=== PATIENT | male | born 1940 | race Caucasian/White ===

== ENCOUNTER → 2016-11-10 | Outpatient (CLI) | payer MEDICARE, OTHER ==
[2016-11-10 10:48] LABS: ABSOLUTE LYMPHOCYTES (AUTO) 2.2 10^3/uL (0.5-4.7); ABSOLUTE MONOCYTES (AUTO) 1.2 10^3/uL (0.1-1.4); ABSOLUTE NEUT (AUTO) 7.4 10^3/uL (1.7-8.2); BASOPHILS % (AUTO) 0.3 % (0-2); EOSINOPHILS % (AUTO) 0.4 % (0-6); HEMATOCRIT 43.2 % (37.9-51.0); HEMOGLOBIN 14.6 g/dL (13.5-17.0); HGB HCT DIFFERENCE 0.6; MEAN CORPUSCULAR HEMOGLOBIN 32.3 pg (27.0-33.4); MEAN CORPUSCULAR HGB CONC 33.8 g/dL (32.0-36.0); MEAN CORPUSCULAR VOLUME 96 fl (80-97); MONOCYTES % (AUTO) 10.8 % (3-13); RED BLOOD COUNT 4.52 10^6/uL (4.35-5.55); RED CELL DISTRIBUTION WIDTH 14.3 % (11.5-14.0); SEGMENTED NEUTROPHILS % (AUTO) 68.5 % (42-78); WHITE BLOOD COUNT 10.8 10^3/uL (4.0-10.5)
[2016-11-10 11:15] LABS: ALANINE AMINOTRANSFERASE 38 U/L (21-72); ALBUMIN 4.1 g/dL (3.5-5.0); ALKALINE PHOSPHATASE 58 U/L (38-126); AMYLASE 36 U/L (30-110); ANION GAP 9 (5-19); ASPARTATE AMINO TRANSFERASE 27 U/L (17-59); BILIRUBIN,DIRECT 0.3 mg/dL (0.0-0.4); BILIRUBIN,TOTAL 0.6 mg/dL (0.2-1.3); BLOOD UREA NITROGEN 14 mg/dL (7-20); CALCIUM 9.6 mg/dL (8.4-10.2); CARBON DIOXIDE 29 mmol/L (22-30); CHLORIDE 104 mmol/L (98-107); CREATININE RESULT 0.76 mg/dL (0.52-1.25); GLUCOSE 85 mg/dL (75-110); LDH 459 U/L (313-618); LIPASE 60.9 U/L (23-300); POTASSIUM 4.8 mmol/L (3.6-5.0); SODIUM 142.2 mmol/L (137-145); TOTAL PROTEIN 7.2 g/dL (6.3-8.2)
[2016-11-10 11:16] LABS: C-REACTIVE PROTEIN < 5.0 mg/L (<10.0)
[2016-11-10 11:31] LABS: ERYTHROCYTE SEDIMENTATION RATE 11 mm/hr (0-20)
--- NOTE | 2016-11-10 13:51 | RADIOLOGY REPORT (SQ) ---
EXAM DESCRIPTION: CT ABD/PELVIS WITH IV ORAL COMPLETED DATE/TIME: 11/10/2016 1:19 pm REASON FOR STUDY: UNSPEC ABD PAIN (R10.9) R10.9 UNSPECIFIED ABDOMINAL PAIN COMPARISON: 2007. TECHNIQUE: CT scan of the abdomen and pelvis performed with intravenous and oral contrast using robert sheila scanning technique with dynamic intravenous contrast injection. Images reviewed with lung, soft t issue, and bone windows. Reconstructed coronal and sagittal MPR images reviewed. Delayed images for e valuation of the urinary system also acquired. All images stored on PACS. All CT scanners at this facility use dose modulation, iterative reconstruction, and/or weight based d osing when appropriate to reduce radiation dose to as low as reasonably achievable (ALARA). [facility]: Dose Right [facility]: CareDose [facility]: Dose Right [facility]: Teradose 4D [facility]: [employer]Bio CONTRAST TYPE AND DOSE: 100 mL Isovue 370- low osmolar. RENAL FUNCTION: Creatinine 0.76 RADIATION DOSE: 42.86mGy. LIMITATIONS: None. FINDINGS: LOWER CHEST: No significant findings. No nodules or infiltrates. LIVER: Normal size. No masses or dilated ducts. SPLEEN: Normal size. No focal lesions. PANCREAS: Normal. GALLBLADDER: Surgically absent. ADRENAL GLANDS: No significant masses or asymmetry. RIGHT KIDNEY AND URETER: No solid masses. No significant calcification. No hydronephrosis or hydroure ter. LEFT KIDNEY AND URETER: No solid masses. No significant calcification. No hydronephrosis or hydrouret er. AORTA AND VESSELS: Focal ectasia in the infrarenal aorta just above bifurcation. Borderline aneurysm , just under 3 cm. Associated plaque. Probable chronic mild unchanged dissection. Major arterial b ranches are patent. Major veins are free of clot. RETROPERITONEUM: No retroperitoneal adenopathy, hemorrhage or masses. BOWEL AND PERITONEAL CAVITY: Diverticulosis in the distal colon. No bowel obstruction. No inflammat ory changes. No ascites or abnormal gas. APPENDIX: Normal. PELVIS: No significant masses. Normal bladder. No free fluid. ABDOMINAL WALL: No bowel containing hernia. Minimal fat containing left inguinal hernia. BONES: Osteopenia. Spondylosis. Chronic postoperative changes including posterior instrumentation a t the lumbosacral junction. Epidural stimulator device with leads projecting into the lower thoracic region. OTHER: No other significant finding. IMPRESSION: 1. No acute abdominopelvic abnormality appreciated. 2. Chronic atherosclerosis and dis emelina aortic changes as above. 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 TECHNICAL DOCUMENTATION: JOB ID: [id number] Quality ID # [id number]: Final reports with documentation of one or more dose reduction techniques (e.g., Au tomated exposure control, adjustment of the mA and/or kV according to patient size, use of iterative reconstruction technique) 2010 [employer]- All Rights Reserved
== END ==
LOC: RAD 10:05
PROVIDERS: ATTEND Family Medicine
DX: R10.9 Unspecified abdominal pain (principal); K57.30 Diverticulosis of large intestine without perforation or abscess without bleeding
CPT/HCPCS: 36415; 74177; 80053; 82150; 83615; 83690; 85025; 85652; 86140

== ENCOUNTER 2018-09-14 20:35 | Emergency (ER) | payer MEDICARE, OTHER ==
[2018-09-14] MEDS ORDERED: NORMAL SALINE 500 ML IV ONE (22:05)
[2018-09-14] MEDS ORDERED: ONDANSETRON HCL INJ/PF 4 MG/2 ML SDV IV ONE (22:05)
--- NOTE | 2018-09-14 22:09 | ER Document Report ---
ED General - General Chief Complaint: Fever Stated Complaint: FEVER,VOMITING,ACHES Time Seen by Provider: 09/14/18 21:56 Primary Care Provider: LUCIUS KIRBY MD [Primary Care Provider] - Follow up as needed Notes: Patient is a 78-year-old male who presents with complaint of vomiting and fever. Patient says is not had a new cough or congestion. No associated abdominal pain other than a little bit of indigestion sensation when he has to vomit. Fever at home yesterday was 102. Today is 101. Tonight he went to urgent care and he said they did blood work and told him he had to come to the ER. He did not get his blood work results. He does have history of enlarged prostate. He denies any pain in his prostate area but has noticed yesterday through today he has had some urinary frequency increase. No blood in his emesis. No diarrhea. No blood in the stool. No other complaints at this time. Patient has a history of atrial fibrillation is on Xarelto. TRAVEL OUTSIDE OF THE [place] IN LAST 30 DAYS: No - Related Data Allergies/Adverse Reactions: No Known Allergies Allergy (Verified 11/22/12 06:38) Past Medical History - Social History Smoking Status: Never Smoker Frequency of alcohol use: None Drug Abuse: None Family History: Reviewed & Not Pertinent Patient has suicidal ideation: No Patient has homicidal ideation: No - Past Medical History Cardiac Medical History: Reports: Hx Heart Attack - 2001, Hx Hypertension - on meds Denies: Hx Coronary Artery Disease Pulmonary Medical History: Reports: Hx Bronchitis Denies: Hx Asthma, Hx COPD, Hx Pneumonia Neurological Medical History: Denies: Hx Cerebrovascular Accident, Hx Seizures Renal/ Medical History: Denies: Hx Peritoneal Dialysis GI Medical History: Musculoskeletal Medical History: Reports Hx Arthritis Infectious Medical History: Past Surgical History: Denies: Hx Pacemaker - Immunizations Hx Diphtheria, Pertussis, Tetanus Vaccination: Yes Hx Pneumococcal Vaccination: 03/13/10 Review of Systems - Review of Systems Notes: My Normal Review Basic REVIEW OF SYSTEMS: CONSTITUTIONAL : Denies fever, chills, or sweats. Denies recent illness. EENT: Denies eye, ear, throat, or mouth pain or symptoms. Denies nasal or sinus congestion. RESPIRATORY: Denies cough, cold, or chest congestion. Denies shortness of breath, difficulty breathing, or wheezing. GASTROINTESTINAL: Mild "indigestion" type feeling in epigastric region when he becomes nauseous. Otherwise no other abdominal pain. Recurrent vomiting. GENITOURINARY: Denies difficulty urinating, painful urination, burning, frequency, or blood in urine. MUSCULOSKELETAL: Denies neck or back pain or joint pain or swelling. SKIN: Denies rash or skin lesions. NEUROLOGICAL: Denies altered mental status or loss of consciousness. Denies headache. Denies weakness or paralysis or loss of use of either side. Denies problems with gait or speech. Denies sensory or motor loss. ALL OTHER SYSTEMS REVIEWED AND NEGATIVE. Physical Exam - Vital signs Vitals: Temp Pulse Resp BP Pulse Ox 99.2 F 97 16 144/59 H 96 09/14/18 21:10 09/14/18 21:10 09/14/18 21:10 09/14/18 21:10 09/14/18 21:10 - Notes Notes: General Appearance: Well nourished, alert, cooperative, no acute distress, no obvious discomfort. Well-appearing. Vitals: reviewed, See vital signs table. Head: no swelling or tenderness to the head Eyes: PERRL, EOMI, Conjuctiva clear Mouth: No decreasd moisture Lungs: No wheezing, No rales, No rhonci, No accessory muscle use, good air exchange bilaterally. Heart: Normal rate, Regular rythm, No murmur, no rub Abdomen: Normal BS, soft, No rigidity, No abdominal tenderness to palpation, No guarding, no rebound, no abdominal masses, no organomegaly Extremities: strength 5/5 in all extremities, good pulses in all extremities, no swelling or tenderness in the extremities, very trace lower extremity edema. Skin: warm, dry, appropriate color, no rash Neuro: speech clear, oriented x 3, normal affect, responds appropriately to questions. Course - Re-evaluation Re-evalutation: 09/14/18 23:42 On reevaluation patient continues look well. Is in no distress. Breathing is normal. Heart rate is normal. He has pyuria. This could either be UTI or possible prosthetic infection. I will give him a dose of Rocephin. If he continues look well after that then I will place him on Bactrim which we will treat both UTI and/or prostate type infection. This makes sense with the fact the patient has noticed some urinary frequency over the last 2 days. 09/15/18 00:22 Patient continues to feel much improved and his vital signs are normal. I feel he safe to be discharged home. He is not septic or toxic appearing. We will place him on Bactrim. I encouraged him follow-up with his doctor on Tuesday. I informed him that if he is having recurrent fevers or feels that he is not improving over the weekend then he should return to the ER for reevaluation and not wait till Tuesday to see his doctor. Patient agrees with plan will be discharged home. Dictation of this chart was performed using voice recognition software; therefore, there may be some unintended grammatical errors. - Vital Signs Vital signs: Temp Pulse Resp BP Pulse Ox 99.2 F 97 16 144/59 H 96 09/14/18 21:10 09/14/18 21:10 09/14/18 21:10 09/14/18 21:10 09/14/18 21:10 - Laboratory Result Diagrams: 09/14/18 21:39 09/14/18 21:39 Laboratory results interpreted by me: 09/14/18 09/14/18 09/14/18 21:39 21:39 21:39 WBC 13.1 H RBC 4.29 L MCH 33.8 H Seg Neutrophils % 86.9 H Lymphocytes % 6.4 L Absolute Neutrophils 11.4 H Sodium 136.8 L Glucose 134 H Urine Protein 30 H Urine Ketones 20 H Urine Blood MODERATE H Urine Urobilinogen 4.0 H Ur Leukocyte Esterase LARGE H Urine Ascorbic Acid 40 H Discharge - Discharge Clinical Impression: Pyuria Vomiting Qualifiers: Vomiting type: unspecified Vomiting Intractability: intractable Nausea presence: with nausea Qualified Code(s): R11.2 - Nausea with vomiting, unspecified Condition: Good Disposition: HOME, SELF-CARE Additional Instructions: Your urine shows evidence of infection. This could be related to either a urinary tract infection or could be related to infection of your prostate. I have placed you on an antibiotic called Bactrim. This will treat both of those conditions. Please take the antibiotic as prescribed. Please stop the antibiotic and return to the ER immediately if you develop a rash as this would be a sign of a serious reaction to the antibiotic. I have also prescribed a medicine called Zofran which will help with the nausea. You can take the Zofran as 1 tablet every 4 hours as needed for nausea. Please take Tylenol if you develop fever over the next 36 hours. After 36 hours you should not be developing further fevers. If you continue develop fevers then you should return to ER for reevaluation. Please follow-up with your doctor on Tuesday. Return to the ER immediately if you develop recurrent vomiting despite Zofran, recurring fevers as mentioned above, or if you feel that you are worsening in any way. Return to ER immediately if you develop any abdominal pain. Prescriptions: Sulfamethoxazole/Trimethoprim [Bactrim Ds Tablet] 1 each PO BID #28 tablet Referrals: LUCIUS KIRBY MD [Primary Care Provider] - 09/18/18
[2018-09-14 22:21] LABS: ABSOLUTE LYMPHOCYTES (AUTO) 0.8 10^3/uL (0.5-4.7); ABSOLUTE MONOCYTES (AUTO) 0.9 10^3/uL (0.1-1.4); ABSOLUTE NEUT (AUTO) 11.4 10^3/uL (1.7-8.2); BASOPHILS % (AUTO) 0.1 % (0-2); EOSINOPHILS % (AUTO) 0.1 % (0-6); HEMATOCRIT 40.7 % (37.9-51.0); HEMOGLOBIN 14.5 g/dL (13.5-17.0); LYMPHOCYTES % (AUTO) 6.4 % (13-45); MEAN CORPUSCULAR HEMOGLOBIN 33.8 pg (27.0-33.4); MEAN CORPUSCULAR HGB CONC 35.5 g/dL (32.0-36.0); MEAN CORPUSCULAR VOLUME 95 fl (80-97); MONOCYTES % (AUTO) 6.5 % (3-13); PLATELET COUNT 178 10^3/uL (150-450); RED BLOOD COUNT 4.29 10^6/uL (4.35-5.55); RED CELL DISTRIBUTION WIDTH 13.5 % (11.5-14.0); SEGMENTED NEUTROPHILS % (AUTO) 86.9 % (42-78); TOTAL CELLS COUNTED % (AUTO) 100 %; WHITE BLOOD COUNT 13.1 10^3/uL (4.0-10.5)
[2018-09-14 22:26] LABS: ALANINE AMINOTRANSFERASE 24 U/L (21-72); ALKALINE PHOSPHATASE 64 U/L (38-126); ANION GAP 11 (5-19); ASPARTATE AMINO TRANSFERASE 22 U/L (17-59); BILIRUBIN,DIRECT 0.4 mg/dL (0.0-0.4); BLOOD UREA NITROGEN 15 mg/dL (7-20); CALCIUM 9.5 mg/dL (8.4-10.2); CARBON DIOXIDE 24 mmol/L (22-30); CHLORIDE 102 mmol/L (98-107); GLUCOSE 134 mg/dL (75-110); LIPASE 30.1 U/L (23-300); POTASSIUM 4.1 mmol/L (3.6-5.0); SODIUM 136.8 mmol/L (137-145); TOTAL PROTEIN 7.1 g/dL (6.3-8.2)
[2018-09-14] MEDS ORDERED: FAMOTIDINE INJ/PF 20 MG/2 ML SDV IV ONE (22:38)
[2018-09-14 22:41] LABS: APPEARANCE,URINE SLIGHTLY-CLOUDY; BILIRUBIN,URINE NEGATIVE (NEGATIVE); COLOR,URINE YELLOW; GLUCOSE, URINE NEGATIVE (NEGATIVE); KETONES,URINE 20 mg/dL (NEGATIVE); LEUKOCYTE ESTERASE,URINE LARGE (NEGATIVE); NITRITE,URINE NEGATIVE (NEGATIVE); PROTEIN,URINE 30 mg/dL (NEGATIVE); URINE SPECIFIC GRAVITY 1.027
[2018-09-14] MEDS ORDERED: CEFTRIAXONE 1 GM/D5W RTU 1 GM/50 ML RTUPB IV ONE (23:59)
[2018-09-15] MEDS ORDERED: ONDANSETRON ODT 4 MG TAB (6 TAB/ER DISP) PO PRN (00:20)
[2018-09-15 00:49] VITALS: BP 134/63
--- NOTE | 2018-09-15 07:46 | EKG REPORT ---
SEVERITY:- ABNORMAL ECG - SINUS RHYTHM VENTRICULAR PREMATURE COMPLEX NONSPECIFIC IVCD WITH LAD (LAFB) : Confirmed by: Shola Leal MD 15-Sep-2018 07:46:37
== END 2018-09-15 00:55 | disposition home or self-care (01) ==
LOC: ER 20:35
DX: N39.0 Urinary tract infection, site not specified (principal); R11.2 Nausea with vomiting, unspecified; R50.9 Fever, unspecified; R11.10 Vomiting, unspecified; M79.10 Myalgia, unspecified site; R05 Cough; R09.81 Nasal congestion; I48.91 Unspecified atrial fibrillation; Z79.01 Long term (current) use of anticoagulants; I10 Essential (primary) hypertension; Z79.899 Other long term (current) drug therapy
CPT/HCPCS: 93005; 99284; 96361; 96375; 96365; 36415; 87086; 83690; 85025; 87088; 80053; 81001; 87186; 93010; J2405; J7040; S0028; J0696; A9270

== ENCOUNTER 2018-11-23 10:32 | Day surgery (SDC) | payer MEDICARE, OTHER ==
[~2018-11-23 10:32] MED LIST: KETOROLAC TROMETHAMINE 0.45% 4 DROP/0.4 ML DROPERETTE OS PRN; MIDAZOLAM 2 MG/2 ML INJ ONE
[2018-11-23] MEDS: BESIFLOXACIN HCL 0.6% OPH SUSP 5 ML BOTTLE OS PRN ×4 (11:23→12:24)
[2018-11-23] MEDS: TROPICAMIDE 1% OPH SOLN 3 ML OS PRN ×3 (11:23→11:43)
[2018-11-23] MEDS: CYCLOPENTOLATE 0.2%/PHENYLEPHRINE 1% OPH SOLN 2 ML OS PRN ×3 (11:23→11:43)
[2018-11-23] MEDS: TETRACAINE HCL 0.5% OPH SOLN 4 ML OS PRN ×4 (11:24→11:55)
[2018-11-23] MEDS: LIDOCAINE 1%/PHENYLEPHRINE 1.5% 1 ML VIAL ONE ×2 (12:12)
[2018-11-23] MEDS: CHONDR SU A NA/HYALUR INTRAOC KIT (SURGICARE) ONE ×2 (12:12)
[2018-11-23] MEDS: EPINEPHRINE INJ/PF 1 MG/1 ML AMPULE ONE ×2 (12:12)
[2018-11-23] MEDS: DORZOLAMIDE HCL 2%/TIMOLOL MALEAT 0.5% OPH SOLN 10 ML OS PRN ×2 (12:24)
--- NOTE | 2018-11-24 09:09 | [facility] OPERATIVE REPORT E ---
[facility] Operative Report NAME: OLEG CALZADA AGE: 78Y DATE OF SURGERY: 11/23/2018 ROOM: PREOPERATIVE DIAGNOSIS: CATARACT, LEFT EYE. POSTOPERATIVE DIAGNOSIS: CATARACT, LEFT EYE. OPERATION: Cataract extraction with Symfony Toric IOL, left eye. SURGEON: LISHA HUIZAR M.D. ANESTHESIA: Topical. PROCEDURE: After obtaining appropriate consent, the patient's left eye was prepped and draped in sterile fashion as well as the surgeon in a sterile manner and cataract surgery was started. First a paracentesis blade was used to make a side-port incision. Viscoelastic was used to inflate the anterior chamber. Next a 2.4 mm incision was made with a 2.4 mm blade, clear corneal temporally. A continuous capsulorrhexis was made using a cystotome and Utrata forceps. Following this hydrodissection was carried out to make the lens fully loose and mobile and it was rotated 90 degrees. Following this, a ovjltn-yam-kpruspx technique was used to phacoemulsify the lens with a CDE of 5.53. The remaining cortex was removed with irrigation/aspiration. Provisc was instilled into the capsular bag to inflate the bag. A 19.0 diopter [id number] lens was placed, rotated to 160 degrees. The remaining viscoelastic material was removed with irrigation/aspiration. Following this, the incision was found to be watertight. Besivance was instilled into the eye and a protective shield was placed over the eye. The patient returned to the postoperative recovery in stable condition. DICTATING PHYSICIAN: LISHA HUIZAR M.D. [id number] PHY#: [id number] ID: [id number] JOB#: [id number] ACCT: [id number] cc:LISHA HUIZAR M.D. >
--- NOTE | 2018-11-24 09:09 | [facility] DISCHARGE SUMMARY E ---
[facility] Discharge Summary NAME: OLEG CALZADA AGE: 78Y ADMITTED: 11/23/2018 DISCHARGED: 11/23/2018 DIAGNOSIS: CATARACT, LEFT EYE. SUMMARY: This is a 78-year-old patient who underwent cataract extraction with insertion of a Symfony Toric IOL of the left eye. They underwent surgery because they were having difficulty with glare from headlights. DISCHARGE INSTRUCTIONS: They should be on a regular diet. They should use their Besivance, Prolensa, and Durezol at 3 p.m. and 8 p.m. and sleep with a rigid shield. I will see them for a 1-day postoperative tomorrow. DICTATING PHYSICIAN: LISHA HUIZAR M.D. [id number] PHY#: [id number] ID: [id number] JOB#: [id number] ACCT: [id number] cc:LISHA HUIZAR M.D. >
== END 2018-11-23 13:10 | disposition home or self-care (01) ==
LOC: SC 10:32
PROVIDERS: ATTEND Internal Medicine
DX: H25.813 Combined forms of age-related cataract, bilateral (principal); H16.223 Keratoconjunctivitis sicca, not specified as Sjogren's, bilateral; J45.909 Unspecified asthma, uncomplicated; I48.91 Unspecified atrial fibrillation; I25.2 Old myocardial infarction; I10 Essential (primary) hypertension; Z87.891 Personal history of nicotine dependence; Z79.899 Other long term (current) drug therapy
CPT/HCPCS: 66984; V2788; J2250; J3490 ×2; A9270; J0171; J2370

== ENCOUNTER 2018-12-21 09:59 | Day surgery (SDC) | payer MEDICARE, OTHER ==
[~2018-12-21 09:59] MED LIST changes: +FENTANYL CITRATE INJ/PF 100 MCG/2 ML AMPUL ONE; +KETOROLAC TROMETHAMINE 0.45% 4 DROP/0.4 ML DROPERETTE OD PRN; -KETOROLAC TROMETHAMINE 0.45% 4 DROP/0.4 ML DROPERETTE OS PRN
[2018-12-21] MEDS: TROPICAMIDE 1% OPH SOLN 3 ML OD PRN ×3 (10:50→11:10)
[2018-12-21] MEDS: TETRACAINE HCL 0.5% OPH SOLN 4 ML OD PRN ×4 (10:50→11:14)
[2018-12-21] MEDS: BESIFLOXACIN HCL 0.6% OPH SUSP 5 ML BOTTLE OD PRN ×4 (10:50→11:44)
[2018-12-21] MEDS: CYCLOPENTOLATE 0.2%/PHENYLEPHRINE 1% OPH SOLN 2 ML OD PRN ×3 (10:50→11:10)
[2018-12-21] MEDS: LIDOCAINE 1%/PHENYLEPHRINE 1.5% 1 ML VIAL ONE ×2 (11:26)
[2018-12-21] MEDS: CHONDR SU A NA/HYALUR INTRAOC KIT (SURGICARE) ONE ×2 (11:26)
[2018-12-21] MEDS: EPINEPHRINE INJ/PF 1 MG/1 ML AMPULE ONE ×2 (11:26)
[2018-12-21] MEDS: DORZOLAMIDE HCL 2%/TIMOLOL MALEAT 0.5% OPH SOLN 10 ML OD PRN ×2 (11:44)
--- NOTE | 2018-12-22 11:30 | [facility] OPERATIVE REPORT E ---
[facility] Operative Report NAME: OLEG CALZADA AGE: 78Y DATE OF SURGERY: 12/21/2018 ROOM: PREOPERATIVE DIAGNOSIS: CATARACT, RIGHT EYE. POSTOPERATIVE DIAGNOSIS: CATARACT, RIGHT EYE. OPERATION: Cataract extraction with Symfony toric of the right eye. SURGEON: LISHA HUIZAR M.D. ANESTHESIA: Topical. PROCEDURE: After obtaining appropriate consent, the patient's right eye was prepped and draped in sterile fashion as well as the surgeon in a sterile manner and cataract surgery was started. First a paracentesis blade was used to make a side-port incision. Viscoelastic was used to inflate the anterior chamber. Next, a 2.4 mm incision was made with a 2.4 mm blade, clear corneal temporally. A continuous capsulorrhexis was made using a cystotome and Utrata forceps. Following this hydrodissection was carried out to make the lens fully loose and mobile and it was rotated 90 degrees. Following this, a grhhto-ptk-quloagl technique was used to phacoemulsify the lens with a CDE of 8.47. The remaining cortex was removed with irrigation/aspiration. Provisc was instilled into the capsular bag to inflate the bag. A [id number], 19.5 diopter lens was placed, and that was rotated to 10 degrees. The remaining viscoelastic material was removed with irrigation/aspiration. Following this, the incision was found to be watertight. Besivance was instilled into the eye and a protective shield was placed over the eye. The patient returned to the postoperative recovery in stable condition. DICTATING PHYSICIAN: LISHA HUIZAR M.D. [id number] PHY#: [id number] ID: [id number] JOB#: [id number] ACCT: [id number] cc:LISHA HUIZAR M.D. >
--- NOTE | 2018-12-22 11:31 | [facility] DISCHARGE SUMMARY E ---
[facility] Discharge Summary NAME: OLEG CALZADA AGE: 78Y ADMITTED: 12/21/2018 DISCHARGED: 12/21/2018 DIAGNOSIS: Cataract, right eye. SUMMARY: This is a 78-year-old who underwent cataract extraction of the right eye with insertion of a Symfony toric. He underwent surgery because he was having difficulty with glare at day and nighttime. DISCHARGE INSTRUCTIONS: He should be on a regular diet, no bending at the waist, and no heavy lifting. He should use his Besivance, Prolensa, and Durezol at 3 p.m. and 8 p.m. and sleep with a rigid shield. I will see him for a 1-day postoperative tomorrow. DICTATING PHYSICIAN: LISHA HUIZAR M.D. [id number] PHY#: [id number] ID: [id number] JOB#: [id number] ACCT: [id number] cc:LISHA HUIZAR M.D. >
== END 2018-12-21 12:24 | disposition home or self-care (01) ==
LOC: SC 09:59
PROVIDERS: ATTEND Internal Medicine
DX: H25.811 Combined forms of age-related cataract, right eye (principal); Z96.1 Presence of intraocular lens; I25.10 Atherosclerotic heart disease of native coronary artery without angina pectoris; Z86.010 Personal history of colon polyps; E66.9 Obesity, unspecified
CPT/HCPCS: 66984; J2250; J3490 ×2; A9270; J0171; J3010; J2370; 142; V2788